=== PATIENT | female | born 1990 | race Caucasian/White ===

== ENCOUNTER 2017-07-05 07:09 | Inpatient (IN) | payer OTHER, BC ==
[~2017-07-05 07:09] MED LIST: NUVARING VAGIN1 EACH VAGINAL
--- NOTE | 2017-07-26 08:34 | NUR ---
07/26/17 0834 Dorota Torres 0820 PT ARRIVED AWAKE AND DENIES PAIN AND NAUSEA. VSS. RESP EVEN AND UNLABORED. 0825 BABY TO CHEST AND PT RESTING IN BED WITH NO PROBLEMS AT THIS TIME.
--- NOTE | 2017-07-26 11:41 | OR ---
[facility] [address] [place], [place] [address] Signed DATE OF OPERATION: 07/26/2017 SURGEON: Chan Emery MD PREOPERATIVE DIAGNOSES: Term , previous section. POSTOPERATIVE DIAGNOSES: Term , previous section. PROCEDURE PERFORMED: Repeat low transverse segment section. Delivery of live female . SCRIPT COORDINATOR: Carmelita Barrios MD. ANESTHESIA: Spinal. ESTIMATED BLOOD LOSS: 500 mL. COMPLICATIONS: None. DRAINS: Degroot to bladder. FINDINGS: Live female infant, Apgars 8 and 9. Weight 5 pounds 9 ounces. Normal uterus. Normal tubes and ovaries bilateral. DESCRIPTION OF PROCEDURE: The patient was brought in to the operating room. After adequate spinal anesthesia was obtained, the patient was placed in supine position, and prepped and draped in the usual sterile fashion. Degroot catheter was placed in the bladder. A scalpel was used to remove previous Pfannenstiel skin scar and then the subcutaneous tissue dissected with the Bovie. The fascia was nicked with the scalpel and extended in transverse fashion using curved scissors. The underlying abdominal musculature was bluntly and sharply along the midline. The peritoneum was grasped with hemostats, elevated, Electronically Signed By: CHAN EMERY MD 07/26/17 1141 PATIENT NAME: SAMUEL RTIPP OPERATIVE REPORT DATE OF : [birth year] REPORT #: [id number] PHYSICIAN: CHAN EMERY MD PCP: NO PRIMARY CARE PHYSICIAN REPORT IS CONFIDENTIAL AND NOT TO BE RELEASED WITHOUT AUTHORIZATION [facility] [address] [place], [place] [address] Signed nicked with Metzenbaum scissors, and extended in vertical fashion using Metzenbaum scissors. The Peter self-retaining retractor was inserted into the incision and tightened in place. The lower uterine segment was identified. The bladder was noted to be well below the area of the incision, so a small incision was made in the midline of lower uterine segment using a scalpel, bulging bag of fluid came from the incision. The incision was extended in transverse fashion using finger dissection. The bag was opened with pickups with teeth. The infant's head was noted to be in ANN vertex presentation. Infant's head easily delivered from the incision. There was a nuchal cord around the neck once loosely and this was removed, the rest of the was easily delivered from the incision. The mouth and nose were suctioned with bulb syringe while the cord was doubly clamped and cut. The infant was passed off the table in good condition to awaiting nurse. With the placenta being somewhat difficult to remove, but care was taken and gentle traction and finger dissection used to remove the uterus, most adherent part was in the left angle and this side was carefully examined after the placenta was out, no placental tissue remained. The entire uterine cavity was explored with a lap pad to remove any retained membranes. At this point, an angle stitch of #0 Monocryl was placed at one end of the incision and a running locking stitch of #0 Monocryl starting at the other end was used to close the incision. A second running stitch of #0 Monocryl was used to imbricate the first layer. Good hemostasis was noted. The pelvis was irrigated, suctioned, and examined, any superficial bleeding spots cauterized with the Bovie. When good hemostasis was noted, the Peter retractor was removed. A sheet of ACell was placed over the lower uterine segment to help with healing and then the anterior wall peritoneum was closed using running stitch of #2-0 Vicryl suture. The abdominal musculature was reapproximated using interrupted stitches of #0 Vicryl suture. The abdominal wall incision was irrigated, suctioned, and examined, any bleeding spots were cauterized with the Bovie. Powdered ACell sprinkled over the abdominal musculature and the fascia was then closed using two running stitch of #0 Vicryl suture meeting in the midline. Subcutaneous tissue was irrigated, suctioned, and examined, any bleeding spots were cauterized with the Bovie. The subcutaneous tissue was reapproximated using interrupted stitches of #3-0 Vicryl suture and the skin reapproximated using skin clips. The patient tolerated the procedure well, went to recovery room in good condition. The sponge, needle, and instrument count were correct at the end of the procedure. Chan Emery MD MJB/MODL /[id number] Electronically Signed By: CHAN EMERY MD 07/26/17 1141 PATIENT NAME: SAMUEL TRIPP OPERATIVE REPORT DATE OF : [birth year] REPORT #: [id number] PHYSICIAN: CHAN EMERY MD PCP: NO PRIMARY CARE PHYSICIAN REPORT IS CONFIDENTIAL AND NOT TO BE RELEASED WITHOUT AUTHORIZATION [address] [address] Signed Copies: ~ Electronically Signed By: CHAN EMERY MD 07/26/17 1141 PATIENT NAME: SAMUEL TRIPP OPERATIVE REPORT DATE OF : [birth year] REPORT #: [id number] PHYSICIAN: CHAN EMERY MD PCP: NO PRIMARY CARE PHYSICIAN REPORT IS CONFIDENTIAL AND NOT TO BE RELEASED WITHOUT AUTHORIZATION
--- NOTE | 2017-07-27 09:18 | PR ---
[facility] [address] [facility] [place] [address] Signed PP Progress Notes Datetime Report Generated by CPN: 07/27/2017 09:17 SUBJECTIVE: [id number] Pain: Within normal limits Nausea/Vomiting: Denies Vital Signs: [id number] Vital Signs: Reviewed; Within Normal Limits Notable Details: PP HGb/Hct = 11.9/33.8 EXAM: [id number] Abdomen/Uterus: Normal Lochia: Normal Extremities: Normal Incision: Normal IMPRESSION/PLAN/PROCEDURES: [id number] Impression: Normal progression Plan: Continue present management Procedures: None Progress Notes: Doing well, without complaint. Moving well, voiding, tolerating food well. Signing Physician: Leonel Case MD Copies: ~ *Electronically Signed* 07/27/17 0917 LEONEL CASE MD PATIENT NAME: SAMUEL TRIPP PROGRESS NOTE DATE OF : [birth year] PHYSICIAN: LEONEL CASE MD RPT #: [id number] REPORT IS CONFIDENTIAL AND NOT TO BE RELEASED WITHOUT AUTHORIZATION
--- NOTE | 2017-07-28 15:02 | PR ---
[facility] [address] [facility] [place] [address] Signed PP Progress Notes Datetime Report Generated by CPN: 07/28/2017 15:02 SUBJECTIVE: [id number] Pain: Within normal limits Nausea/Vomiting: Denies Vital Signs: [id number] Vital Signs: Reviewed; Within Normal Limits Notable Details: PP HGb/Hct = 11.9/33.8 EXAM: [id number] Abdomen/Uterus: Normal Lochia: Normal Extremities: Normal Incision: Normal IMPRESSION/PLAN/PROCEDURES: [id number] Impression: Normal progression Plan: Discharge Procedures: None Progress Notes: Doing well, ready to go home. Signing Physician: Leonel Case MD Copies: ~ *Electronically Signed* 07/28/17 1502 LEONEL CASE MD PATIENT NAME: SAMUEL TRIPP PROGRESS NOTE DATE OF : [birth year] PHYSICIAN: LEONEL CASE MD RPT #: [id number] REPORT IS CONFIDENTIAL AND NOT TO BE RELEASED WITHOUT AUTHORIZATION
== END 2017-07-28 15:35 | disposition home or self-care (01) | DRG 766 ==
LOC: FBC 07-26 05:27
PROVIDERS: ADMIT General Practice
PROC: 10D00Z1 Extraction of Products of Conception, Low, Open Approach (ICD-10-PCS; principal; 2017-07-26 06:45)
DX: O34.211 Maternal care for low transverse scar from previous cesarean delivery (principal); N85.8 Other specified noninflammatory disorders of uterus; O69.81X0 Labor and delivery complicated by cord around neck, without compression, not applicable or unspecified; O99.334 Smoking (tobacco) complicating childbirth; F17.210 Nicotine dependence, cigarettes, uncomplicated; O99.62 Diseases of the digestive system complicating childbirth; K21.9 Gastro-esophageal reflux disease without esophagitis; O99.52 Diseases of the respiratory system complicating childbirth; J45.990 Exercise induced bronchospasm; Z79.899 Other long term (current) drug therapy; Z88.0 Allergy status to penicillin; Z88.8 Allergy status to other drugs, medicaments and biological substances; Z37.0 Single live birth; Z3A.39 39 weeks gestation of pregnancy
CPT/HCPCS: 01961; 85027; C1763; J0690; J1100; J2274; J2300; J2405; J2590; J3010; J7120

== ENCOUNTER 2019-12-14 10:34 | Emergency (ER) | payer OTHER ==
[~2019-12-14] VITALS: Ht 165.1 cm; Wt 113.4 kg
== END 2019-12-14 12:05 | disposition home or self-care (01) ==
LOC: ED 10:34
DX: S93.401A Sprain of unspecified ligament of right ankle, initial encounter (principal); F17.200 Nicotine dependence, unspecified, uncomplicated; Z88.8 Allergy status to other drugs, medicaments and biological substances; X50.9XXA Other and unspecified overexertion or strenuous movements or postures, initial encounter
CPT/HCPCS: 73610; 99283-25

== ENCOUNTER 2021-11-29 05:22 | Day surgery (SDC) | payer OTHER ==
[~2021-11-29] VITALS: Ht 162.6 cm; Wt 73.6 kg
[~2021-11-29 05:22] MED LIST changes: +BIOTIN5 MG PO; +CALCIUM500 MG PO; +FLUOXETINE HCL20 MG PO; +L-LYSINE500 M1 PO; +MULTI VITAMIN1 EACH TD
--- NOTE | 2021-11-29 10:28 | NUR ---
11/29/21 1028 Mikayla Sparks 0956 PT ARRIVED IN PACU REACTIVE WITH OPA IN PLACE. 957 OPA REMOVED. 1006 C/O ABD PAIN 05/15. FENTANYL 50MCG GIVEN IVP. 1015 RESTING. REU. 1020 C/O ABD PAIN 05/15. FENTANYL 50MCG GIVEN IVP. 1025 SNORING. REU.
--- NOTE | 2021-11-29 10:44 | NUR ---
PT IS BACK TO DS FROM PACU. SHE IS REPORTING PAIN A /, STATING ITS A HOT/COLD PAIN. CALL LIGHT WITHIN REACH. IS AT THE BESIDE. SHE REQUEST ICE WATER. NO ADDITIONAL NEEDS OR CONCERNS.
--- NOTE | 2021-11-29 11:15 | NUR ---
LE 1110: PT'S BELL IS REMOVED. THE BALLOON IS EMPTIED OF 9MLS OF NS. THE CATHETER IS REMOVED WITHOUT ISSUE. THERE IS 400MLS OF NEON YELLOW URINE PRESENT IN THE BELL BAG.
[2021-11-29] MEDS ORDERED: HYDROCODON-ACE1 EA10 PO (11:22)
--- NOTE | 2021-11-29 11:42 | NUR ---
PT IS TOLERATING WATER WELL. SHE REPORTS HER PAIN HAS IMPROVED. CALL LIGHT WITHIN REACH. REMAINS AT THE BEDSIDE. DC CRITERIA IS REVIEWED. SHE REQUESTS ANETTE DANIEL. NO ADDITIONAL NEEDS OR CONCERNS AT THIS TIME.
--- NOTE | 2021-11-29 13:51 | NUR ---
LE 1330: PT IS GIVEN VERBAL AND WRITTEN DC INSTRUCTIONS WITH HER PRESENT. BOTH VERBALIZES UNDERSTANDING. QUESTIONS ARE ASKED AND ANSWERED. PT IS EDUCATED ON HOW TO BEST DRESS HERSELF AND TO OPEN HER CURTAIN WHEN SHE IS READY. LE 1345: PT IS TAKEN TO PERSONAL VEHICLE VIA WC, WHERE SHE IS ABLE TO TRANSFER HERSELF WITHOUT ISSUES.
--- NOTE | 2021-12-01 08:35 | OR ---
[facility] [address] [place] [address] Signed DATE OF OPERATION: 11/29/2021 SURGEON: Margot Kay DO PREOPERATIVE DIAGNOSES: 1. Abnormal uterine bleeding. 2. History of gastric sleeve. POSTOPERATIVE DIAGNOSES: 1. Abnormal uterine bleeding. 2. History of gastric sleeve. PROCEDURES PERFORMED: 1. Total laparoscopic hysterectomy. 2. Bilateral salpingectomy. 3. Cystoscopy. SALES SUPPORT ENGINEER: Svetlana Nguyen DO. ANESTHESIA: General. ESTIMATED BLOOD LOSS: 25 mL. SPECIMEN: Uterus, bilateral tubes and cervix. DRAINS: Degroot to gravity. FINDINGS: Normal external genitalia, vagina and cervix. On laparoscopy, normal uterus and bilateral ovaries. She is status with Falope ring tubal ligation bilaterally. No significant intra-abdominal scarring from prior surgeries. Hemostasis with excellent apical support at the end of the procedure. On cystoscopy, normal bladder with bilateral ureteral jets. COMPLICATIONS: Electronically Signed By: MARGOT KAY DO 12/01/21 0835 PATIENT NAME: SAMUEL ARNOLD OPERATIVE REPORT DATE OF : [birth year] REPORT #: [id number] PHYSICIAN: MARGOT KAY DO PCP: EMERSON GIRARD PA-C REPORT IS CONFIDENTIAL AND NOT TO BE RELEASED WITHOUT AUTHORIZATION [address] [address] Signed None. INDICATIONS: Ms. Arnold is a very pleasant 31-year-old G3 female who presented with heavy abnormal bleeding, failing Depo-Provera, Nexplanon, IUD, OCPs and contraceptive patch in the past. Ultrasound demonstrated normal size uterus with no focal solid masses or endometrial abnormalities. Labs were normal. The patient was consented for total laparoscopic hysterectomy, bilateral salpingectomy and cystoscopy. Risks, benefits, and alternatives were discussed in detail with the patient. The patient understands and wished to proceed with the procedure. TECHNIQUE: The patient was taken to the operating room where a time-out was performed to confirm correct patient and correct procedure. General anesthesia was adequately established. The patient was prepped and draped in the dorsal lithotomy position with feet in Yellofin stirrups. ICPs were on and running. The patient received Ancef 2 g preoperatively per SCIP protocol and no heparin was indicated. A Degroot catheter was inserted. A weighted speculum was placed in the vagina and the anterior lip of the cervix was grasped with Allis clamp. The cervix was serially dilated using Hegar dilators and the VCare uterine manipulator was placed without difficulty. The surgeon's gloves were changed and attention was turned to the abdomen. Approximately 2 cm below the umbilicus, a curvilinear incision was made after infiltrating with 0.25% Marcaine with epinephrine. The fascia was grasped with hemostats, elevated and entered sharply using Metzenbaum scissors. The peritoneum was entered. A Diego operative port was placed and pneumoperitoneum was established. Survey of the abdomen and pelvis was performed, which demonstrated surgical changes in the right upper quadrant consistent with gastric sleeve, but no significant intra-abdominal adhesions or scarring. Normal uterus and bilateral ovaries. Fallopian tubes were status post Falope ring. A 5 mm assist port was placed in the left lower quadrant under direct visualization without complication and a 5 mm assist port was placed in the right lower quadrant under direct visualization without complication. The fimbriated end of the left fallopian tube was grasped, elevated, and dissected using ligature device along the mesosalpinx with excellent hemostasis. The left uteroovarian ligament was fulgurated and divided with excellent hemostasis. The process was repeated on the right without difficulty. The left round ligament was fulgurated and divided and the leaves of the broad ligament were dissected at the anterior from the midportion of the round ligament to the edge of the vaginal cup dissecting the bladder well below the vaginal cup. The posterior leaf was dissected from the midportion of the round ligament to the uterosacral ligament and across the posterior edge of the vaginal cup. The uterine vessels were identified, fulgurated and divided with excellent hemostasis. The process was repeated on the right side without complication. The colpotomy was then performed using Sonicision device and the uterus and cervix were delivered through the vagina and sent Electronically Signed By: MARGOT KAY DO 12/01/21 0835 PATIENT NAME: SAMUEL ARNOLD JOHN OPERATIVE REPORT DATE OF : [birth year] REPORT #: [id number] PHYSICIAN: MARGOT KAY DO PCP: EMERSON GIRARD PA-C REPORT IS CONFIDENTIAL AND NOT TO BE RELEASED WITHOUT AUTHORIZATION [address] [address] Signed to pathology for further evaluation. The fallopian tube remnants were then placed in the vagina and grasped under direct visualization and sent to pathology for further evaluation. To maintain pneumoperitoneum, a wet lap and a glove were placed into the vagina. The surgeon's gloves were again changed and attention was turned to the colpotomy repair. 0 Stratafix suture was selected and laparoscopic suturing was performed, incorporating the uterosacral ligaments bilaterally and the vaginal epithelium with each bite in the closure of the colpotomy. Excellent apical support and hemostasis were appreciated at the end the procedure. The pelvis was irrigated and found to be hemostatic. Pneumoperitoneum was reduced. Trocars were removed. A small amount of oozing was noted from the left lower quadrant and from the infraumbilical incision. This was made hemostatic with Bovie electrocautery and Raf powder. Once hemostasis was appreciated, closure of the infraumbilical fascia was performed using 0 Vicryl in a running nonlocked manner and stay sutures were used to reinforce the umbilical incision. Skin was reapproximated using 4-0 Monocryl in a subcuticular stitch with excellent hemostasis and cosmesis. Attention was then turned to the cystoscopy. The Degroot catheter was removed and a 70-degree cystoscope was advanced under direct visualization through the uterine meatus and into the bladder. The bladder was filled and normal bladder dome was appreciated. Bilateral ureteral jets were appreciated. The bladder was drained. Degroot catheter was reinserted and the patient was taken to PACU in good and stable condition. Sponge, needle and instrument count was correct x2 at the end of the procedure. Dr. Nguyen was present and participated in all portions of the procedure. Margot Kay DO JDW/MODL /[id number] Electronically Signed By: MARGOT KAY DO 12/01/21 0835 PATIENT NAME: SAMUEL ARNOLD OPERATIVE REPORT DATE OF : [birth year] REPORT #: [id number] PHYSICIAN: MARGOT KAY DO PCP: EMERSON GIRARD PA-C REPORT IS CONFIDENTIAL AND NOT TO BE RELEASED WITHOUT AUTHORIZATION [facility] [address] [place] [address] Signed Copies: ~ Electronically Signed By: MARGOT KAY DO 12/01/21 0835 PATIENT NAME: SAMUEL ARNOLD OPERATIVE REPORT DATE OF : [birth year] REPORT #: [id number] PHYSICIAN: MARGOT KAY DO PCP: EMERSON GIRARD PA-C REPORT IS CONFIDENTIAL AND NOT TO BE RELEASED WITHOUT AUTHORIZATION
--- NOTE | 2021-12-01 16:05 | PATH ---
[facility] [address] [place], [place] [address] Signed SPECIMEN(S): A UTERUS, CERVIX AND BILATERAL TUBES SPECIMEN SOURCE: A. UTERUS, CERVIX AND BILATERAL TUBES CLINICAL HISTORY: Abnormal uterine bleeding. FINAL PATHOLOGIC DIAGNOSIS: Uterus, cervix, and bilateral tubes: - Proliferative to early secretory endometrium, negative for hyperplasia or atypia. - Endocervix and ectocervix with mild cellular atypia (favor reactive). - Benign bilateral oviducts. - Incidental benign paratubal serous cysts and developmental rests. JVR:[facility]:C2NR MICROSCOPIC EXAMINATION: Histologic sections of all submitted blocks are examined by light microscopy. These findings, together with the gross examination, support the pathologic diagnosis. GROSS DESCRIPTION: The specimen, labeled "SS, A," and designated on the requisition "cervix, uterus, bilateral fallopian tubes," is received in formalin and consists of a uterus with attached cervix, a detached tubal segment, and detached fallopian tube fimbria. The orientation of the uterus is grossly indeterminate. The uterus with attached cervix weighs 133.5 g and measures 8.9 x 7.3 x 4.7 cm. The uterine serosa is duong-putnam, glistening with multiple rare, focal areas of duong-white, delicate adhesions. The ectocervical tissue is duong-white to pink, smooth, and occupies a 3.2 x 0.1 cm area. The external os is oval, patent, 1.2 cm in diameter. The internal os is patent and the cervical stroma is grossly unremarkable. The triangular endometrial cavity is slightly distorted and measures 4.5 x 2.2 cm. The duong to dark red endometrium is markedly ragged, ill-defined, and up to 0.4 cm thick. The duong, rubbery myometrium is up to 2.2 cm thick, and the vessels running throughout the myometrium are markedly dilated. A discrete mass/lesion is not grossly identified. PATIENT NAME: SAMUEL ARNOLD PATHOLOGY DATE OF : [birth year] REPORT #: [id number] PHYSICIAN: JOSIANE CABRERA PCP: EMERSON GIRARD PA-C REPORT IS CONFIDENTIAL AND NOT TO BE RELEASED WITHOUT AUTHORIZATION [facility] [address] [place], [place] [address] Signed The fallopian tube fimbria measure 3.1 x 2.4 x 0.5 cm is duong-purple, and without a grossly identifiable attached tubal segment. The fimbria is grossly unremarkable. The detached fimbriated fallopian tube segment is duong-white to putnam, 5.5 cm long, 1.0 cm in diameter, has a patent lumen, and multiple clear fluid-filled, smooth inner walled, paratubal cystic structures from less than 0.1-0.7 cm in greatest dimension. An additional discrete mass/lesion is not grossly identified. Industrial Nurse sections are submitted as follows: A1-A2 cervix A3-A4 uterine wall; A4 serosal adhesions A5-A6 detached fimbria entirely A7-A8 detached fallopian tube, including fimbria entirely AI (under the direct supervision of a pathologist) The Gross Description was prepared using a voice recognition system. The report was reviewed for accuracy; however, sound-alike word errors, addition and/or deletions may occur. If there is any question about this report, please contact Client Services. PERFORMING LABORATORY: The technical component was performed by [facility], [address] [place] [id number] (CLIA# [id number]). Professional interpretation was performed by [facility], [address] [place] [address], [place] [address] (CLIA#: [id number]). Diagnostician: Diony Castañeda MD Pathologist Electronically Signed 12/01/2021 Copies: ~ PATIENT NAME: SAMUEL ARNOLD [facility] PATHOLOGY DATE OF : [birth year] REPORT #: [id number] PHYSICIAN: [facility] PATHOLOGY PCP: EMERSON GIRARD PA-C REPORT IS CONFIDENTIAL AND NOT TO BE RELEASED WITHOUT AUTHORIZATION
== END 2021-11-29 13:45 | disposition home or self-care (01) ==
LOC: OPS 05:22 → DS 05:22 → OPS 06:45 → DS 07:30 → OPS 09:30 → DS 09:30 → OPS 13:45
PROVIDERS: ATTEND Obstetrics & Gynecology
PROC: 0UT94ZZ Resection of Uterus, Percutaneous Endoscopic Approach (ICD-10-PCS; principal; 2021-11-29 06:45)
PROC: 0UT74ZZ Resection of Bilateral Fallopian Tubes, Percutaneous Endoscopic Approach (ICD-10-PCS; 2021-11-29 06:45)
DX: N93.9 Abnormal uterine and vaginal bleeding, unspecified (principal); N94.6 Dysmenorrhea, unspecified; N83.8 Other noninflammatory disorders of ovary, fallopian tube and broad ligament; N87.9 Dysplasia of cervix uteri, unspecified; Z90.3 Acquired absence of stomach [part of]; Z88.0 Allergy status to penicillin; Z98.51 Tubal ligation status
CPT/HCPCS: 00840; A9270; J0131; J0690; J1100; J1885; J2250; J2405; J2704; J3010; J7121

== ENCOUNTER 2022-02-23 00:07 | Emergency (ER) | payer OTHER ==
[~2022-02-23] VITALS: Ht 162.6 cm; Wt 72.6 kg
[~2022-02-23 00:07] MED LIST changes: +HYDROCODON-ACE1 EA10 PO
[2022-02-23] MEDS ORDERED: BUSPIRONE HCL7.5 MG PO (00:37)
[2022-02-23] MEDS ORDERED: HYDROXYZINE HCL25 MG PO (00:38)
[2022-02-23] MEDS ORDERED: HYDROCODON-ACE1 EA10 PO (01:26)
[2022-02-23] MEDS ORDERED: ONDANSETRON ODT8 MG PO (01:26)
== END 2022-02-23 01:50 | disposition home or self-care (01) ==
LOC: ED 00:07
DX: K80.50 Calculus of bile duct without cholangitis or cholecystitis without obstruction (principal); J45.909 Unspecified asthma, uncomplicated; F17.200 Nicotine dependence, unspecified, uncomplicated; Z20.822 Contact with and (suspected) exposure to COVID-19; Z98.84 Bariatric surgery status; Z88.8 Allergy status to other drugs, medicaments and biological substances; Z79.899 Other long term (current) drug therapy
CPT/HCPCS: 36415; 80053; 83690; 84703; 85025; 87502; 96374; 96375; 99284-25; A9270; C9803; J1170; J2405; J7121; U0003